=== PATIENT | female | born 1970 | race African-American/Black ===

== ENCOUNTER 2019-10-14 19:48 | Emergency (ER) | payer BC ==
--- NOTE | 2019-10-14 20:13 | PDOC ---
Rapid Medical Evaluation Time Seen by Provider: 10/14/19 20:09 Medical Evaluation: Allergies Allergy/AdvReac Type Severity Reaction Status Date / Time No Known Drug Allergies Allergy Verified 08/19/16 10:56 10/14/19 20:10 I have performed a brief in-person evaluation of this patient. The patient presents with a chief complaint of: cough and SOB since this afternoon, denies CP, denies recent surgery/travel/hormone use Pertinent physical exam findings: fine crackles to RLL I have ordered the following: cxr The patient will proceed to the ED for further evaluation. Discharge Disposition - Diagnosis Shortness of breath - Referrals - Patient Instructions - Post Discharge Activity
[2019-10-14 20:14] VITALS: BP 113/77; TEMP 97.4; BMI 24.3
[2019-10-14 23:11] LABS: MCHC 33.3 g/dl (32.0-36.0); RDW 13.4 % (11.6-15.6); WHITE BLOOD COUNT 8.4 K/mm3 (4.0-10.0)
[2019-10-14 23:19] LABS: BASO % 0.9 % (0-2.0); EOS % 8.5 % (0-4.5); HEMOGLOBIN 13.6 GM/dL (10.7-15.3); LYMPH % 34.6 % (8-40); MCH 29.1 pg (25.7-33.7); MEAN CELL VOLUME 87.3 fl (80-96); MONO % 8.4 % (3.8-10.2); NEUT % 47.6 % (42.8-82.8); PLATELET COUNT 158 K/MM3 (134-434); RBC 4.69 M/mm3 (3.60-5.2)
[2019-10-14 23:47] LABS: ALBUMIN 3.4 g/dl (3.4-5.0); ALK PHOS 86 U/L (45-117); ANION GAP 4 MMOL/L (8-16); BILIRUBIN,TOTAL 0.2 mg/dL (0.2-1); BLOOD UREA NITROGEN 16.7 mg/dL (7-18); CALCIUM 9.4 mg/dL (8.5-10.1); CHLORIDE 108 mmol/L (98-107); CO2 31 mmol/L (21-32); CREATININE 0.8 mg/dL (0.55-1.3); GLUCOSE,RANDOM 95 mg/dL (74-106); POTASSIUM 3.9 mmol/L (3.5-5.1); SGOT/AST 17 U/L (15-37); SGPT/ALT 18 U/L (13-61); SODIUM 143 mmol/L (136-145); TOT PROT 7.3 g/dl (6.4-8.2)
--- NOTE | 2019-10-15 00:06 | PDOC ---
Documentation entered by Kushal Espinal SCRIBE, acting as scribe for Saranya Mcgee MD. Saranya Mcgee MD: This documentation has been prepared by the Teddy song Xhesika, SCRIBE, under my direction and personally reviewed by me in its entirety. I confirm that the documentation accurately reflects all work, treatment, procedures, and medical decision making performed by me. History of Present Illness - General Chief Complaint: Shortness of Breath Stated Complaint: S.O.B.CHEST IRRITATION Time Seen by Provider: 10/14/19 20:09 History Source: Patient Exam Limitations: No Limitations - History of Present Illness Initial Comments: 10/14/19 21:39 The patient is a 48 year old female with no past medical history who presents to the ED with shortness or breath while she was at work. Patient reports associated cough. Pt denies any long travels or car rides. The patient denies chest pain, headache and dizziness. Denies fever, chills, nausea, vomiting, diarrhea and constipation. Denies dysuria, frequency, urgency and hematuria. Allergies: NKDA Past History - Past Medical History Allergies/Adverse Reactions: Allergies Allergy/AdvReac Type Severity Reaction Status Date / Time No Known Drug Allergies Allergy Verified 08/19/16 10:56 Home Medications: Ambulatory Orders NK [No Known Home Medication] 03/13/16 - Psycho Social/Smoking Cessation Hx Smoking History: Never smoked Information on smoking cessation initiated: No Hx Alcohol Use: Yes (SOCIAL) Drug/Substance Use Hx: No Substance Use Type: None Review of Systems - Review of Systems Able to Perform ROS?: Yes Comments:: 10/14/19 21:42 GENERAL/CONSTITUTIONAL: No fever or chills. No weakness. HEAD, EYES, EARS, NOSE AND THROAT: No change in vision. No ear pain or discharge. No sore throat. CARDIOVASCULAR: No chest pain. +shortness of breath. RESPIRATORY: + cough. No wheezing, or hemoptysis. GASTROINTESTINAL: No nausea, vomiting, diarrhea or constipation. GENITOURINARY: No dysuria, frequency, or change in urination. MUSCULOSKELETAL: No joint or muscle swelling or pain. No neck or back pain. SKIN: No rash NEUROLOGIC: No headache, vertigo, loss of consciousness, or change in strength/ sensation. ENDOCRINE: No increased thirst. No abnormal weight change. HEMATOLOGIC/LYMPHATIC: No anemia, easy bleeding, or history of blood clots. ALLERGIC/IMMUNOLOGIC: No hives or skin allergy. *Physical Exam - Vital Signs Last Vital Signs Temp Pulse Resp BP Pulse Ox 97.4 F L 82 20 113/77 100 10/14/19 20:10 10/14/19 20:10 10/14/19 20:10 10/14/19 20:10 10/14/19 20:10 - Physical Exam 10/14/19 21:42 GENERAL: Awake, alert, and fully oriented, in no acute distress HEAD: No signs of trauma EYES: PERRLA, EOMI, sclera anicteric, conjunctiva clear ENT: Auricles normal inspection, hearing grossly normal, nares patent, oropharynx clear without exudates. Moist mucosa NECK: Normal ROM, supple, no lymphadenopathy, JVD, or masses LUNGS: Breath sounds equal, clear to auscultation bilaterally. No wheezes, and no crackles HEART: Regular rate and rhythm, normal S1 and S2, no murmurs, rubs or gallops ABDOMEN: Soft, nontender, normoactive bowel sounds. No guarding, no rebound. No masses EXTREMITIES: Normal range of motion, no edema. No clubbing or cyanosis. No cords, erythema, or tenderness NEUROLOGICAL: Cranial nerves II through XII grossly intact. Normal speech, normal gait SKIN: Warm, Dry, normal turgor, no rashes or lesions noted. ED Treatment Course - LABORATORY CBC & Chemistry Diagram: 10/14/19 23:00 10/14/19 23:00 - ADDITIONAL ORDERS Additional order review: Laboratory Results 10/14/19 10/14/19 23:00 23:00 WBC 8.4 RBC 4.69 Hgb 13.6 Hct 41.0 MCV 87.3 MCH 29.1 MCHC 33.3 RDW 13.4 Plt Count 158 MPV 10.0 Absolute Neuts (auto) 4.0 Neutrophils % 47.6 Lymphocytes % 34.6 Monocytes % 8.4 Eosinophils % 8.5 H Basophils % 0.9 Nucleated RBC % 0 Sodium 143 Potassium 3.9 Chloride 108 H Carbon Dioxide 31 Anion Gap 4 L BUN 16.7 Creatinine 0.8 Est GFR (CKD-EPI)AfAm 100.33 Est GFR (CKD-EPI)NonAf 86.57 Random Glucose 95 Calcium 9.4 Total Bilirubin 0.2 AST 17 ALT 18 Alkaline Phosphatase 86 Creatine Kinase 100 Troponin I < 0.02 Total Protein 7.3 Albumin 3.4 10/14/19 23:00 RBC 4.69 MCV 87.3 MCHC 33.3 RDW 13.4 MPV 10.0 Neutrophils % 47.6 Lymphocytes % 34.6 Monocytes % 8.4 Eosinophils % 8.5 H Basophils % 0.9 Medical Decision Making - Medical Decision Making 10/15/19 01:58 EKG was normal sinus rhythm with no signs of acute ischemia Cardiac profile was negative CBC did not show any leukocytosis or significant anemia Chemistries were reviewed and electrolytes are within normal limits, as her kidney functions glucose and LFTs Chest x-ray did not show any acute pulmonary disease, no effusions, no pneumothorax, no consolidation In later discussions the patient said she was concerned about being exposed to mold that was found in her building -pt has no respiratory distress and was d/c home to follow-up with her primary care provider Discharge - Discharge Information Problems reviewed: Yes Clinical Impression/Diagnosis: Shortness of breath Chest pain Qualifiers: Chest pain type: unspecified Qualified Code(s): R07.9 - Chest pain, unspecified Condition: Stable Disposition: HOME - Admission No - Follow up/Referral - Patient Discharge Instructions Patient Printed Discharge Instructions: DI for Shortness of Breath Additional Instructions: Please follow up with your primary care physician Return for worsening symptoms such as chest pain that radiates to your neck , jaw or arms or back or shortness of breath that is not transient - Post Discharge Activity
[2019-10-15 00:09] VITALS: PULSE 84
--- NOTE | 2019-10-15 12:36 | EKG ---
Test Reason : Blood Pressure : / mmHG Vent. Rate : 080 BPM Atrial Rate : 080 BPM P-R Int : 172 ms QRS Dur : 088 ms QT Int : 380 ms P-R-T Axes : 086 084 060 degrees QTc Int : 438 ms NORMAL SINUS RHYTHM POSSIBLE LEFT ATRIAL ENLARGEMENT BORDERLINE ECG NO PREVIOUS ECGS AVAILABLE Confirmed by MIS ALVARENGA, SWETHA ([id number]) on 10/15/2019 12:36:35 PM Referred By: Confirmed By:SWETHA ABEBE MD
== END 2019-10-15 00:11 | disposition home or self-care (01) ==
LOC: JER 19:48
DX: R07.9 Chest pain, unspecified (principal); R06.02 Shortness of breath
CPT/HCPCS: 36415; 71046-TC-FY; 80053; 82550; 84484; 85025; 93005; 93010; 99283-25